=== PATIENT | female | born 2000 | race Caucasian/White ===

== ENCOUNTER 2023-04-27 17:14 | Outpatient (CLI) | payer OTHER, SELFPAY ==
--- OUTSIDE RECORDS SUMMARY | 2023-05-02 09:45 | XMS_ITS | Patient Health Record ---
Author Name Unknown Organization [facility] [address] Address [address] [place] [address] Care Team Providers Care Insulation Technician Name Role Phone Keegan FRANK Unavailable [phone] ENCOUNTERS from 2000 to 2023-05-02 Encounter Location Date Provider Diagnosis [facility] [address] [place] [address] Oct, Keegan FRANK Encounter for observation for suspected exposure to other biological agents ruled out Z03.818 SOCIAL HISTORY Sex Assigned At : Social History Observation Description Sex Assigned At Unknown REASON FOR REFERRAL No Information REASON FOR VISIT No Information MENTAL STATUS No Information ASSESSMENTS Encounter Date Diagnosis Assessment Notes Treatment Notes Treatment Clinical Notes Oct, Encounter for observation for suspected exposure to other biological agents ruled out (ICD-10 - Z03.818) It is important to read the following links for CDC Recommendations related to COVID [email or web address] e When to Seek Emergency Medical Attention Look for emergency warning signs* for COVID-19. If someone is showing any of these signs, seek emergency medical care immediately- Trouble breathing- Persistent pain or pressure in the chest- New confusion- Inability to wake or stay awake- Bluish lips or face*This list is not all possible symptoms. Please call your medical provider for any other symptoms that are severe or concerning to you.Call 911 or call ahead to your local emergency facility: Notify the horizontal drill operator that you are seeking care for someone who has or may have COVID-19.Follow up with PCP. Follow up with PCP. RULLING OUT COVID 19 BY TESTING. Medical Necessity Met PLAN OF TREATMENT Treatment Notes Assessment Notes Clinical Notes Encounter for observation for suspected exposure to other biological agents ruled out It is important to read the following links for CDC Recommendations related to COVID [email or web address] -[email or web address] When to Seek Emergency Medical Attention Look for emergency warning signs* for COVID-19. If someone is showing any of these signs, seek emergency medical care immediately- Trouble breathing- Persistent pain or pressure in the chest- New confusion- Inability to wake or stay awake- Bluish lips or face*This list is not all possible symptoms. Please call your medical provider for any other symptoms that are severe or concerning to you.Call 911 or call ahead to your local emergency facility: Notify the horizontal drill operator that you are seeking care for someone who has or may have COVID-19.Follow up with PCP. Follow up with PCP. RULLING OUT COVID 19 BY TESTING. Medical Necessity Met Next Appt Details prn Reason:Symptoms not impr lowell Follow Up:prnSymptoms not improved Insurance Providers Payer Name Payer Address Payer Phone Insured Name Patient Relationship to Insured Coverage Start Date Coverage End Date Subscriber Number Group Number [facility] [address] [address] [facility] [id number] Jesus Kaur Self - patient is the insured [id number]
== END 2023-04-27 17:15 | disposition home or self-care (01) ==
LOC: AMB 05-02 09:43
PROVIDERS: Visit Provider Family Medicine
DX: R22.0 Localized swelling, mass and lump, head (principal); T78.1XXA Other adverse food reactions, not elsewhere classified, initial encounter
CPT/HCPCS: A0425; A0427